=== PATIENT | female | born 1960 | race Caucasian/White ===

== ENCOUNTER 2017-02-06 10:09 | Outpatient (CLI) | payer OTHER ==
--- NOTE | 2017-02-07 11:08 | Diagnostic Imaging Report ---
Ultrasound of the bilateral breasts HISTORY: Mastodynia. History of right breast surgery in 2010 to remove reportedly benign mass COMPARISON: None Technique: Sonography of the bilateral breast was performed in multiple planes. FINDINGS: Exam of the right breast demonstrates glandular and fatty breast tissue. No focal lesions identified. No other abnormalities identified. Exam of the left breast demonstrates glandular and fatty breast tissue. No focal lesions identified. No other abnormalities identified. IMPRESSION: No focal mass lesions identified. BI-RADS 0, incomplete. Further correlation with mammography is also recommended. Note that a clinically suspicious breast abnormality should not preclude sonographic findings.
== END 2017-02-06 11:00 | disposition home or self-care (01) ==
LOC: RAD 10:09
PROVIDERS: ATTEND Anesthesiology Pain Medicine
DX: N64.4 Mastodynia (principal)
CPT/HCPCS: 76642

== ENCOUNTER 2017-02-13 06:37 | Outpatient (CLI) | payer OTHER ==
[2017-02-13 07:32] LABS: % BASOPHILS 0.2 % (0.0-2.0); % EOSINOPHILS 2.2 % (0.0-5.0); % LYMPHOCYTES 29.5 % (20.0-50.0); % MONOCYTES 5.6 % (2.0-10.0); % NEUTROPHILS 62.5 % (40.0-80.0); HEMATOCRIT 40.5 % (35.0-45.0); HEMOGLOBIN 13.5 gm/dL (11.7-15.5); MEAN CELL VOLUME 89.2 fl (81-100); MEAN CORPUSCULAR HEMOGLOBIN 29.8 pg (27.0-31.0); MEAN CORPUSCULAR HGB CONC 33.4 pg (28.0-36.0); MEAN PLATELET VOLUME 10.1 fl; NEUTROPHILE ABSOLUTE 2.8 Th/cmm (1.8-8.0); PLATELET COUNT 195 Th/cmm (150-400); RED BLOOD COUNT 4.54 Mil/cmm (3.80-5.10); RED CELL DISTRIBUTION WIDTH 12.3 % (11.5-20.0); WHITE BLOOD COUNT 4.4 Th/cmm (4.8-10.8)
[2017-02-13 07:47] LABS: URINE BILIRUBIN NEGATIVE (NEGATIVE); URINE BLOOD TRACE (NEGATIVE); URINE COLOR YELLOW; URINE GLUCOSE (UA) NEGATIVE (NEGATIVE); URINE KETONE NEGATIVE (NEGATIVE); URINE PROTEIN NEGATIVE (NEGATIVE); URINE UROBILINOGEN 0.2 E.U./dL (0.2 - 1.0)
[2017-02-13 07:48] LABS: URINE BACTERIA NONE SEEN /hpf (NONE SEEN); URINE EPITHELIAL CELLS OCCASIONAL /lpf (FEW); URINE WBC 0-2 /hpf (0-5)
[2017-02-13 07:55] LABS: ALB/GLOB RATIO 1.5 (1.0-1.8); ALKALINE PHOSPHATASE 61 U/L (34-104); ANION GAP 7.1 (7.0-16.0); BILIRUBIN,TOTAL 1.3 mg/dL (0.3-1.0); BUN - UREA NITROGEN 17 mg/dL (7-25); CALCIUM SERUM 9.6 mg/dL (8.6-10.3); CARBON DIOXIDE 30.4 mEq/L (21.0-31.0); CHLORIDE 106 mEq/L (98-107); CHOLESTEROL 221 mg/dL (<200); CREATININE - SERUM 0.5 mg/dL (0.6-1.2); GLUCOSE 96 mg/dL (70-105); POTASSIUM SERUM 3.5 mEq/L (3.5-5.1); SGOT 17 U/L (13-39); SGPT/ALT 14 U/L (7-52); SODIUM SERUM 140 mEq/L (136-145); TRIGLYCERIDES 103 mg/dL (<150)
== END 2017-02-13 07:00 | disposition home or self-care (01) ==
LOC: LAB 06:37
PROVIDERS: ATTEND Family Medicine
DX: Z00.01 Encounter for general adult medical examination with abnormal findings (principal); R94.6 Abnormal results of thyroid function studies
CPT/HCPCS: 36415-UA; 80053-TC; 80061-TC; 81001-TC; 84443-TC; 85025-TC

== ENCOUNTER 2017-03-11 06:43 | Outpatient (CLI) | payer OTHER ==
[2017-03-11 07:07] LABS: URINE BILIRUBIN NEGATIVE (NEGATIVE); URINE BLOOD TRACE (NEGATIVE); URINE COLOR YELLOW; URINE GLUCOSE (UA) NEGATIVE (NEGATIVE); URINE KETONE NEGATIVE (NEGATIVE); URINE PH 6.5; URINE PROTEIN NEGATIVE (NEGATIVE); URINE UROBILINOGEN 0.2 E.U./dL (0.2 - 1.0)
[2017-03-11 07:08] LABS: URINE BACTERIA FEW /hpf (NONE SEEN); URINE EPITHELIAL CELLS FEW /lpf (FEW)
== END 2017-03-11 07:23 | disposition home or self-care (01) ==
LOC: LAB 06:43
PROVIDERS: ATTEND Family Medicine
DX: R31.9 Hematuria, unspecified (principal)
CPT/HCPCS: 81001-TC

== ENCOUNTER 2017-05-20 07:32 | Outpatient (CLI) | payer OTHER ==
[2017-05-20 08:10] LABS: CHOLESTEROL 229 mg/dL (<200); SGOT 18 U/L (13-39); SGPT/ALT 22 U/L (7-52); TRIGLYCERIDES 138 mg/dL (<150)
== END 2017-05-20 07:46 | disposition home or self-care (01) ==
LOC: LAB 07:32
PROVIDERS: ATTEND Family Medicine
DX: Z13.220 Encounter for screening for lipoid disorders (principal)
CPT/HCPCS: 36415-UA; 80061-TC; 84450-TC; 84460-TC

== ENCOUNTER 2017-10-30 06:53 | Outpatient (CLI) | payer OTHER ==
[2017-10-30 07:16] LABS: URINE MICROSCOPIC INDICATED? YES; URINE SOURCE MIDSTREAM
[2017-10-30 07:25] LABS: URINE BILIRUBIN NEGATIVE (NEGATIVE); URINE BLOOD TRACE (NEGATIVE); URINE GLUCOSE (UA) NEGATIVE (NEGATIVE); URINE KETONE NEGATIVE (NEGATIVE); URINE LEUKOCYTE ESTERASE MODERATE (NEGATIVE); URINE NITRATE NEGATIVE (NEGATIVE); URINE PH 6.5 (4.6 - 8.0); URINE PROTEIN NEGATIVE (NEGATIVE); URINE UROBILINOGEN 0.2 E.U./dL (0.2 - 1.0)
[2017-10-30 07:30] LABS: URINE COLOR YELLOW
[2017-10-30 07:31] LABS: % BASOPHILS 0.4 % (0.0-2.0); % LYMPHOCYTES 30.6 % (20.0-50.0); % MONOCYTES 6.1 % (2.0-10.0); % NEUTROPHILS 60.9 % (40.0-80.0); EOSINOPHILE ABSOLUTE 0.1 Th/cmm (0.1-0.4); HEMATOCRIT 39.9 % (41.0-60); HEMOGLOBIN 13.5 gm/dL (12-16); LYMPHOCYTE ABSOLUTE 1.6 Th/cmm (1.5-3.0); MEAN CELL VOLUME 89.3 fl (81-100); MEAN CORPUSCULAR HEMOGLOBIN 30.3 pg (27.0-31.0); MEAN CORPUSCULAR HGB CONC 33.9 pg (28.0-36.0); MEAN PLATELET VOLUME 8.8 fl; MONOCYTE ABSOLUTE 0.3 Th/cmm (0.3-1.0); NEUTROPHILE ABSOLUTE 3.3 Th/cmm (1.8-8.0); PLATELET COUNT 241 Th/cmm (150-400); RED BLOOD COUNT 4.46 Mil/cmm (3.80-5.10); RED CELL DISTRIBUTION WIDTH 12.2 % (11.5-20.0); WHITE BLOOD COUNT 5.3 Th/cmm (4.8-10.8)
[2017-10-30 07:31] LABS: URINE CLARITY HAZY (CLEAR)
[2017-10-30 07:32] LABS: URINE BACTERIA FEW /hpf (NONE SEEN); URINE EPITHELIAL CELLS FEW /lpf (FEW)
[2017-10-30 07:52] LABS: ALB/GLOB RATIO 1.4 (1.0-1.8); ALBUMIN 4.4 gm/dL (3.7-5.3); ALKALINE PHOSPHATASE 57 U/L (34-104); ANION GAP 8.7 (7.0-16.0); BILIRUBIN,TOTAL 1.2 mg/dL (0.3-1.0); BUN - UREA NITROGEN 16 mg/dL (7-25); CALCIUM SERUM 9.7 mg/dL (8.6-10.3); CARBON DIOXIDE 29.1 mEq/L (21.0-31.0); CHLORIDE 104 mEq/L (98-107); CHOLESTEROL 241 mg/dL (<200); CREATININE - SERUM 0.5 mg/dL (0.6-1.2); GFR AFRICAN-AMERICAN > 60.0 ml/min (>90); GFR NON AFRICAN-AMERICAN > 60.0 ml/min; GLUCOSE 101 mg/dL (70-105); HDL -HIGH DENSITY LIPOPROTEIN 51 mg/dL (23-92); POTASSIUM SERUM 3.8 mEq/L (3.5-5.1); SGOT 13 U/L (13-39); SGPT/ALT 17 U/L (7-52); SODIUM SERUM 138 mEq/L (136-145); TOTAL PROTEIN,SERUM 7.5 gm/dL (6.0-8.3); TRIGLYCERIDES 145 mg/dL (<150)
== END 2017-10-30 07:15 | disposition home or self-care (01) ==
LOC: LAB 06:53
PROVIDERS: ATTEND Family Medicine
DX: Z00.00 Encounter for general adult medical examination without abnormal findings (principal)
CPT/HCPCS: 36415-UA; 80053-TC; 80061-TC; 81001-TC; 84443-TC; 85025-TC

== ENCOUNTER 2018-02-27 07:32 | Outpatient (CLI) | payer OTHER ==
[2018-02-27 08:15] LABS: URINE MICROSCOPIC INDICATED? YES; URINE SOURCE CLEAN C
[2018-02-27 08:30] LABS: % BASOPHILS 0.7 % (0.0-2.0); % EOSINOPHILS 1.8 % (0.0-5.0); % MONOCYTES 5.2 % (2.0-10.0); % NEUTROPHILS 66.3 % (40.0-80.0); EOSINOPHILE ABSOLUTE 0.1 Th/cmm (0.1-0.4); HEMATOCRIT 38.2 % (41.0-60); HEMOGLOBIN 13.1 gm/dL (12-16); LYMPHOCYTE ABSOLUTE 1.2 Th/cmm (1.5-3.0); MEAN CELL VOLUME 88.5 fl (81-100); MEAN CORPUSCULAR HEMOGLOBIN 30.3 pg (27.0-31.0); MEAN CORPUSCULAR HGB CONC 34.2 pg (28.0-36.0); MEAN PLATELET VOLUME 8.6 fl; MONOCYTE ABSOLUTE 0.2 Th/cmm (0.3-1.0); PLATELET COUNT 242 Th/cmm (150-400); RED BLOOD COUNT 4.32 Mil/cmm (3.80-5.10); RED CELL DISTRIBUTION WIDTH 12.8 % (11.5-20.0); URINE BILIRUBIN NEGATIVE (NEGATIVE); URINE BLOOD MODERATE (NEGATIVE); URINE GLUCOSE (UA) NEGATIVE (NEGATIVE); URINE KETONE NEGATIVE (NEGATIVE); URINE LEUKOCYTE ESTERASE SMALL (NEGATIVE); URINE NITRATE NEGATIVE (NEGATIVE); URINE PROTEIN NEGATIVE (NEGATIVE); URINE UROBILINOGEN 0.2 E.U./dL (0.2 - 1.0); WHITE BLOOD COUNT 4.5 Th/cmm (4.8-10.8)
[2018-02-27 08:31] LABS: URINE CLARITY CLEAR (CLEAR); URINE COLOR YELLOW
[2018-02-27 08:33] LABS: URINE BACTERIA FEW /hpf (NONE SEEN); URINE EPITHELIAL CELLS FEW /lpf (FEW)
[2018-02-27 08:49] LABS: ALB/GLOB RATIO 1.7 (1.0-1.8); ALBUMIN 4.3 gm/dL (3.7-5.3); ALKALINE PHOSPHATASE 66 U/L (34-104); ANION GAP 10.8 (7.0-16.0); BILIRUBIN,TOTAL 1.3 mg/dL (0.3-1.0); BUN - UREA NITROGEN 16 mg/dL (7-25); CALCIUM SERUM 9.1 mg/dL (8.6-10.3); CHLORIDE 106 mEq/L (98-107); CHOLESTEROL 241 mg/dL (<200); CREATININE - SERUM 0.4 mg/dL (0.6-1.2); GFR AFRICAN-AMERICAN > 60.0 ml/min (>90); GFR NON AFRICAN-AMERICAN > 60.0 ml/min; GLUCOSE 97 mg/dL (70-105); HDL -HIGH DENSITY LIPOPROTEIN 48 mg/dL (23-92); POTASSIUM SERUM 3.8 mEq/L (3.5-5.1); SGOT 15 U/L (13-39); SGPT/ALT 15 U/L (7-52); SODIUM SERUM 139 mEq/L (136-145); TOTAL PROTEIN,SERUM 6.9 gm/dL (6.0-8.3); TRIGLYCERIDES 191 mg/dL (<150)
== END 2018-02-27 08:15 | disposition home or self-care (01) ==
LOC: LAB 07:32 → EEVIPCON 07:32 → LAB 08:15
PROVIDERS: ATTEND Family Medicine
DX: Z00.01 Encounter for general adult medical examination with abnormal findings (principal); R94.6 Abnormal results of thyroid function studies; R79.89 Other specified abnormal findings of blood chemistry
CPT/HCPCS: 36415-UA; 80053-TC; 80061-TC; 81001-TC; 84443-TC; 85025-TC; 87086-90

== ENCOUNTER 2019-03-04 07:04 | Outpatient (CLI) | payer OTHER ==
[2019-03-04 07:25] LABS: URINE SOURCE MIDSTREAM
[2019-03-04 07:36] LABS: % BASOPHILS 0.3 % (0.0-2.0); % LYMPHOCYTES 31.4 % (20.0-50.0); % MONOCYTES 5.3 % (2.0-10.0); EOSINOPHILE ABSOLUTE 0.1 Th/cmm (0.1-0.4); HEMATOCRIT 38.7 % (41.0-60); LYMPHOCYTE ABSOLUTE 1.4 Th/cmm (1.5-3.0); MEAN CELL VOLUME 88.6 fl (81-100); MEAN CORPUSCULAR HEMOGLOBIN 29.7 pg (27.0-31.0); MEAN CORPUSCULAR HGB CONC 33.6 pg (28.0-36.0); MONOCYTE ABSOLUTE 0.2 Th/cmm (0.3-1.0); NEUTROPHILE ABSOLUTE 2.8 Th/cmm (1.8-8.0); PLATELET COUNT 240 Th/cmm (150-400); RED BLOOD COUNT 4.37 Mil/cmm (3.80-5.10); RED CELL DISTRIBUTION WIDTH 12.7 % (11.5-20.0); WHITE BLOOD COUNT 4.5 Th/cmm (4.8-10.8)
[2019-03-04 07:38] LABS: URINE BILIRUBIN NEGATIVE (NEGATIVE); URINE BLOOD SMALL (NEGATIVE); URINE GLUCOSE (UA) NEGATIVE (NEGATIVE); URINE KETONE NEGATIVE (NEGATIVE); URINE LEUKOCYTE ESTERASE MODERATE (NEGATIVE); URINE MICROSCOPIC INDICATED? YES; URINE NITRATE NEGATIVE (NEGATIVE); URINE PROTEIN NEGATIVE (NEGATIVE); URINE UROBILINOGEN 0.2 E.U./dL (0.2 - 1.0)
[2019-03-04 07:42] LABS: URINE CLARITY CLEAR (CLEAR); URINE COLOR YELLOW
[2019-03-04 07:56] LABS: URINE BACTERIA NONE SEEN /hpf (NONE SEEN); URINE EPITHELIAL CELLS FEW /lpf (FEW)
[2019-03-04 08:45] LABS: ALB/GLOB RATIO 1.7 (1.0-1.8); ALBUMIN 4.4 gm/dL (3.7-5.3); ALKALINE PHOSPHATASE 63 U/L (34-104); BILIRUBIN,TOTAL 1.4 mg/dL (0.3-1.0); BUN - UREA NITROGEN 15 mg/dL (7-25); CALCIUM SERUM 9.4 mg/dL (8.6-10.3); CARBON DIOXIDE 27.9 mEq/L (21.0-31.0); CHLORIDE 102 mEq/L (98-107); CHOLESTEROL 226 mg/dL (<200); CREATININE - SERUM 0.5 mg/dL (0.6-1.2); GFR AFRICAN-AMERICAN > 60.0 ml/min (>90); GFR NON AFRICAN-AMERICAN > 60.0 ml/min; GLUCOSE 101 mg/dL (70-105); HDL -HIGH DENSITY LIPOPROTEIN 44 mg/dL (23-92); POTASSIUM SERUM 3.9 mEq/L (3.5-5.1); SGOT 15 U/L (13-39); SGPT/ALT 15 U/L (7-52); SODIUM SERUM 136 mEq/L (136-145); TRIGLYCERIDES 212 mg/dL (<150)
== END 2019-03-04 07:25 | disposition home or self-care (01) ==
LOC: LAB 07:04
PROVIDERS: ATTEND Family Medicine
DX: Z00.00 Encounter for general adult medical examination without abnormal findings (principal); R94.6 Abnormal results of thyroid function studies
CPT/HCPCS: 36415-UA; 80053-TC; 80061-TC; 81001-TC; 82306-90; 84443-TC; 85025-TC